=== PATIENT | male | born 1965 | race Caucasian/White ===

== ENCOUNTER → 2020-02-05 | Outpatient (CLI) | payer OTHER ==
[~2020-02-05] MED LIST: ARMO250T4 PO; CARV40CP5 PO; LEVO25TA55 PO; SODI500S4 PO; TAMS0.4C97 PO
== END | disposition home or self-care (01) ==
LOC: LAB 12:30
PROVIDERS: ATTEND Registered Nurse
DX: Z20.828 Contact with and (suspected) exposure to other viral communicable diseases (principal)
CPT/HCPCS: U0003-CS

== ENCOUNTER → 2020-02-09 | Day surgery (SDC) | payer OTHER ==
[~2020-02-09] MED LIST changes: +IPRATRPIUM/ALBUTEROL 0.5/2.5MG 3 ML NEBU. NEB PRN; +IV RINGERS SOLUTION,LACTATED 1,000 ML IV SCH; +ONDANSETRON PF 4 MG/2 ML VIAL. IV PRN; +PROPOFOL 10,000 MCG/ML (20ML) VIAL IV ONE
[2020-02-09 12:04] VITALS: BP 104/58
--- NOTE | 2020-02-10 16:07 | PATHOLOGY ---
[facility] Accession Number: [id number] . 01 Material submitted: . PART A: colon - ASCENDING COLON POLYP. Modifiers: ascending PART B: colon - TRANSVERSE POLYP. Modifiers: transverse . 02 Diagnosis: A. Colon biopsy, ascending colon polyp: - Tubular adenoma. . B. Colon biopsies, transverse colon polyp: - Tubular adenoma. . ([facility]:roving hand; 02/10/2020) [facility] 02/10/2020 1321 Local . 02 Comment: There is no high-grade dysplasia or evidence of malignancy. ([facility]:ruddy; 02/10/2020) . 02 Electronically signed: . Dev Sparks MD, Pathologist NPI- [id number] . 01 Gross description: . A. The specimen is received in formalin, labeled "Jacobo Uli, ascending polyp". Received is a segment of pale rehman soft tissue measuring 0.3 cm in maximum dimensions. The specimen is submitted entirely in cassette A1. . B. The specimen is received in formalin, labeled "Jacobo Uli, transverse polyp". Received is light rehman vegetative material admixed with possible soft tissue measuring 0.6 x 0.6 x 0.1 cm in aggregate dimensions. The specimen is filtered and entirely submitted in cassettes B1. ([facility]; 02/09/2020) QA/QA 02/09/2020 1821 Local . 02 Pathologist provided ICD-10: D12.2, D12.3 . 02 CPT . 475387, [id number] Specimen Comment: A courtesy copy of this report has been sent to [phone], [phone] Specimen Comment: [id number] Specimen Comment: Report sent to / DR COBB Performed at: [address] [place], [place] [id number] [facility] [address], [place], [place] [id number] MD Nj Pierson MD Phone: [phone] Performed at: [address] [id number] MD Dev Sparks MD Phone: [phone]
== END | disposition home or self-care (01) ==
LOC: SURG 09:21
PROVIDERS: ATTEND Internal Medicine Gastroenterology
DX: Z12.11 Encounter for screening for malignant neoplasm of colon (principal); D12.2 Benign neoplasm of ascending colon; D12.3 Benign neoplasm of transverse colon; K63.89 Other specified diseases of intestine; K64.8 Other hemorrhoids; K57.30 Diverticulosis of large intestine without perforation or abscess without bleeding; I10 Essential (primary) hypertension; N40.0 Benign prostatic hyperplasia without lower urinary tract symptoms; M19.90 Unspecified osteoarthritis, unspecified site; G47.33 Obstructive sleep apnea (adult) (pediatric); J45.909 Unspecified asthma, uncomplicated; Z79.899 Other long term (current) drug therapy; Z83.71 Family history of colonic polyps; Z88.8 Allergy status to other drugs, medicaments and biological substances; Z86.010 Personal history of colon polyps; Z88.1 Allergy status to other antibiotic agents; Z98.890 Other specified postprocedural states
CPT/HCPCS: 45385; 88305; J2704; J7120